=== PATIENT | male | born 1985 | race Caucasian/White ===

== ENCOUNTER 2024-10-08 17:35 | Emergency (ER) | payer OTHER, SELFPAY ==
--- OUTSIDE RECORDS SUMMARY | 2024-10-08 17:37 | XMS_ITS | Data Portability ---
Author Organization [facility] Address [address] [place] [address] [place] [address] Assessment No assessment recorded. Plan of Treatment Reminders Order Date Submit Date Provider Last Modified By Organization Details Last Modified Time Details Appointments None record ed. Lab None record ed. Referral None record ed. Procedures None record ed. Surgeries None record ed. Imaging None record ed. Medication Orders None record ed. Patient TargetsNo targets recorded. Patient Instructions Encounter Date Encounter Id Patient Instructions Last Modified By Organization Details Last Modified Time 08/28/2021 [id number] May take Ibuprofen or Tylenolprn. Use ice to arm prn. [email or web address] Not available 08/28/2021 18:35:17 Reason for Referral None Reported. Medical Equipment None Reported. Vitals None Recorded Social History None recorded. Functional Status None recorded. Mental Status None recorded. Family History Nothing Reported. Medical History No medical history recorded. Immunizations Vaccine Type Date Status Note Provider Nam e and Address Organization Details Recorded Time COVID-19, mRNA, LNP-S, PF, 30 mcg/0.3 mL dose 08/28/2021 completed DOMINICK SANTILLAN [address] [place] [address], [phone], [facility] 08/28/2021 18:35:17 Past Encounters Encounter ID Performer Location Encounter Start Date Encounter Closed Date Diagnosis/Indication Diagnosis SNOMED-CT Code Diagnosis ICD10 Code [id number] DOMINICK SANTILLANKATHRYN [facility] [address] [facility] [place] [id number] 08/28/2021 18:18:41 11/12/2021 03:52:43 Administration of SARS-CoV-2 mRNA vaccine [id number] Z23 Health Concerns Section Related Observation LastModified by Organization Detai ls LastModified Time None Recorded Concern Status LastModified by Organization Details LastModified Time None Recorded Advance Directives Directive None Recorded Payers Encounter Date Sequence Insurance Name Policy Number Policy Johnson Covered Member ID Johnson Member ID Guarantor Name 08/28/2021 1 *SELF PAY* Notes Date Note Type Note Provider Name and Address Organization Details Recorded Time 08/28/2021 text/html Requesting Covid 19 vaccine, booster for J&J DOMINICK SANTILLAN [address] [place], [address], [facility] 08/28/2021 18:35:22
[2024-10-08 17:51] VITALS: BP 102/65; PULSE 80; RESP 18; TEMP 36.4; O2SAT 98; BMI 34.9
--- NOTE | 2024-10-08 18:20 | ED_ITS ---
HPI - Back Pain/Injury General Time Seen by Provider: 18:20 Date Seen: 10/08/24 Chief Complaint: Back Injury/Pain Stated Complaint: back pain Time Seen by Provider: 10/08/24 18:20 Source: patient Mode of arrival: ambulatory Limitations: no limitations History of Present Illness HPI Narrative: Bob is a very pleasant 39-year-old male previously healthy currently working at [employer] in [employer] who comes to the emergency room with back pain. Patient notes he was walking downstairs yesterday and felt a sudden pain in his low back. It was not significant at that time. It is now evolved with increasing pain in that area with radiation down both of his anterior legs. He notes radiation into the groin as well. He has not had any loss of bowel or bladder control. Pain does not radiate past the knees. His significant other states it was hard for him to get up from the bed in order to use the restroom because of the discomfort. He has not injured his back in the past. Related Data Home Medications ?Medication ?Instructions ?Recorded ?Confirmed glipizide 2.5 mg tablet, extended 2.5 mg PO DAILY 10/08/24 10/08/24 release 24 hr metformin 500 mg tablet,extended mg PO 10/08/24 release 24 hr Allergies Allergy/AdvReac Type Severity Reaction Status Date / Time No Known Drug Allergies Allergy Verified 10/08/24 17:57 Review of Systems Status of ROS: Reports: 6 or more systems reviewed and unremarkable except as noted in History and below Const: Denies: fever or chills ENMT: Denies: throat pain or nasal congestion Cardio: Denies: chest pain, palpitations, swelling of feet/ankles, lightheadedness or shortness of breath with exertion Resp: Denies: shortness of breath or cough GI: Denies: abdominal pain, nausea or vomiting : Denies: painful urination or genital pain Musculo: Reports: back pain and extremity pain; Denies: extremity swelling Exam Narrative: Exam Narrative: Patient is alert and oriented. Nontoxic in appearance. External ears eyes nose clear. Heart with regular rate and rhythm and lungs are clear. Palpation over the lower back shows tenderness at the superior SI joint. Somewhat in the midline. Patient has full sensation station and motor distally. He she he has full Norman and plantar flexion at the ankles and great toes. DTRs at the knees 1+. No evidence of hyperreflexia. Const: Vital Signs, click to edit/add: Vital Signs - 24 hr 10/08/24 17:51 Temperature 97.5 F L Pulse Rate [Pulse Oximeter] 80 Respiratory Rate 18 Blood Pressure [Ri ght Upper Arm] 102/65 Pulse Oximetry 98 Oxygen Delivery Me thod Room Air Documenting provider has reviewed patient's vital signs: yes Course Course ED Course: Differential diagnosis includes was not limited to disc protrusion with radiculitis, radiculopathy, cauda Luo a, musculoskeletal pain. At this time patient has full motor of the lower extremities and no changes of DTRs. Will obtain x-ray as I am surprised that he has pain down the anterior thighs and not the posterior thighs. Will give dose of morphine 8 mg and Toradol 30 mg I am while awaiting x-ray results. Vital Signs Vital signs: Initial Vital Signs Temperature 97.5 F L 10/08/24 17:51 Temperature Source Temporal Artery Scan 10/08/24 17:51 Pulse Rate 80 10/08/24 17:51 Respiratory Rate 18 10/08/24 17:51 Blood Pressure 102/65 10/08/24 17:51 Blood Pressure Mean 77 10/08/24 17:51 Blood Pressure Position Sitting 10/08/24 17:51 Pulse Oximetry 98 10/08/24 17:51 Oxygen Delivery Method Room Air 10/08/24 17:51 Vital Signs Temperature 97.5 F L 10/08/24 17:51 Pulse Rate 80 10/08/24 17:51 Respiratory Rate 18 10/08/24 17:51 Blood Pressure 102/65 10/08/24 17:51 Pulse Oximetry 98 10/08/24 17:51 Oxygen Delivery Method Room Air 10/08/24 17:51 Temperature 97.5 F L 10/08/24 17:51 Pulse Rate 80 10/08/24 17:51 Respiratory Rate 18 10/08/24 17:51 Blood Pressure 102/65 10/08/24 17:51 Pulse Oximetry 98 10/08/24 17:51 Oxygen Delivery Method Room Air 10/08/24 17:51 Medications Administered Medications: Discontinued Medications Generic Name Dose Route Start Last Admin Trade Name Freq PRN Reason Stop Dose Admin Ketorolac Tromethamine 30 mg 10/08/24 18:46 10/08/24 19:11 Ketorolac 30 Mg/Ml Inj IM 10/08/24 18:47 30 mg ONCE ONE Administration Morphine Sulfate 8 mg 10/08/24 18:46 10/08/24 19:11 Morphine 4 Mg/Ml Inj IM 10/08/24 18:47 8 mg ONCE ONE Administration MDM - Back Pain/Injury MDM Narrative Medical decision making narrative: 1. Low back pain-patient does have radiation of discomfort down his thighs but not past his knees. He has no loss of bowel or bladder control, change in reflexes or weakness of the lower extremities. No evidence of cauda CHI in and X-rays show well preserved disc spaces. Patient received Toradol 30 mg IM and morphine 8 mg IM with significant relief. He is now able to get up off the bed. He is able to show me can stand on his tiptoes as well as on his heels. Will be discharging him home. Would like him to switch from Ali visit does not seem it helped very much today to ibuprofen 800 mg every 8 hours as needed for discomfort. Will also give him a prescription for Flexeril through our [employer] machine 10 mg p.o. t.i.d. p.r.n. although advise him to avoid this medication if driving or going to work. I did offer to write a work note that he has states they do not have to work till tomorrow night at 1700 hours. Would ask that he use ice to areas of discomfort. Return to the emergency room for loss of bowel or bladder control increasing pain and as needed. 2. Disposition- home at this time. Both patient and his feel safe to go home. Imaging Data Lumbar spine: Attestation: I have reviewed the pertinent imaging results. My impression: By my read no compression fractures. Disc spaces are fairly well maintained. Radiologist's impression: Five lumbar-type vertebral bodies are normal height and alignment. Slight intervertebral disc height loss at L4-5. The remaining intervertebral disc spaces are maintained. There are tiny marginal osteophytes at nearly all levels. No aggressive osseous lesion. The posterior elements are unremarkable. The soft tissues are normal. Impression: No acute bony abnormality of the lumbar spine. Discharge Plan Discharge Clinical Impression: Low back pain Qualifiers: Chronicity: acute Back pain laterality: left Sciatica presence: without sciatica Qualified Code(s): M54.50 - Low back pain, unspecified Patient Disposition: Home, Self-Care Condition: Improved Instructions: Acute Low Back Pain (ED) Additional Instructions: You may take either of the following: A leave 2 tablets every 12 hours for ibuprofen 800 mg every 8 hours. Flexeril is a muscle relaxant that may be used as needed. Please avoid using this medication if driving or working because it will make you tired. Ice to area of discomfort. If you are not improving please follow-up at 1 of our local clinics for recheck. If you have markedly worsening pain, loss of bowel or bladder control, increasing pain of the legs please return to the emergency room for further evaluation. Prescriptions: No Action glipizide 2.5 mg tablet extended release 24hr 2.5 mg PO DAILY metformin 500 mg tablet extended release 24 hr PO Follow Up/Referrals: Provider,Not a Local [Primary Care Provider] - Stand Alone Forms: [employer] Info Instructions
--- NOTE | 2024-10-08 18:47 | CRLHL7_ITS ---
For Patients: As a result of the Century Cures Act, medical imaging exams and procedure reports are released immediately into your electronic medical record. You may view this report before your referring provider. If you have questions, please contact your health care provider. Indication: Left-sided low back pain. Technique: Lumbar spine 3 views. Comparison: None. Findings: Five lumbar-type vertebral bodies are normal height and alignment. Slight intervertebral disc height loss at L4-5. The remaining intervertebral disc spaces are maintained. There are tiny marginal osteophytes at nearly all levels. No aggressive osseous lesion. The posterior elements are unremarkable. The soft tissues are normal. Impression: No acute bony abnormality of the lumbar spine. Dictated by Vishnu Johnson MD @ 10/08/2024 8:00:50 PM (Electronically Signed)
[2024-10-08] MEDS: KETOROLAC 30 MG/ML inj IM (19:11)
[2024-10-08] MEDS: MORPHINE 4 MG/ML INJ 8 MG IM (19:11)
== END 2024-10-08 20:30 | disposition home or self-care (01) ==
PROVIDERS: Emergency Provider Family Medicine
DX: M54.50 Low back pain, unspecified (principal)
CPT/HCPCS: 72100; 96372; 99284; J1885; J2270

== ENCOUNTER 2025-02-07 21:34 | Emergency (ER) | payer OTHER, SELFPAY ==
--- OUTSIDE RECORDS SUMMARY | 2025-02-07 21:36 | XMS_ITS | Data Portability ---
Author Organization [facility] Address [address] [place] [address] [place] [address] Assessment No assessment recorded. Plan of Treatment [...] By Organization Details Last Modified Time 08/28/2021 [id number] May take Ibuprofen or Tylenolprn. Use ice to arm prn. [email or web address] Not available 08/28/2021 18:35:17 Reason for Referral None Reported. Medical Equipment None Reported. Vitals None Recorded Social History None recorded. Functional Status None recorded. Mental Status None recorded. Family History Nothing Reported. Medical History No medical history recorded. Immunizations Vaccine Type Date Status Note Provider Talib talley and Address Organization Details Recorded Time COVID-19, mRNA, LNP-S, PF, 30 mcg/0.3 mL dose 08/28/2021 completed DOMINICK SANTILLAN [address] [place] [address], [phone], [facility] 08/28/2021 18:35:17 Past Encounters Encounter ID Performer Location Encounter Start Date Encounter Closed Date Diagnosis/Indication Diagnosis SNOMED-CT Code Diagnosis ICD10 Code [facility] [address] [facility] [place] [id number] 08/28/2021 18:18:41 11/12/2021 03:52:43 Administration of SARS-CoV-2 mRNA vaccine [id number] Z23 Health Concerns Section Related Observation LastModified [...] vaccine, booster for J&J DOMINICK SANTILLAN [address] [facility] [place], [address], [facility] - [facility] 08/28/2021 18:35:22
[2025-02-07 21:41] VITALS: BP 133/90; PULSE 98; RESP 20; TEMP 36.3; O2SAT 96
--- NOTE | 2025-02-07 21:54 | ED_ITS ---
HPI - Wound/Laceration General Chief Complaint: Laceration/Wound Stated Complaint: cut L pinky finger @ work Time Seen by Provider: 02/07/25 21:42 History of Present Illness HPI narrative: This 39-year-old male comes in with an injury to his left little finger. He was at work and tripped over something and injured his little finger on a sharp part of a machine. He has a 1 cm laceration over the distal portion of the dorsal aspect of the left little finger. He states that his tetanus status is not up-to-date. Related Data Home Medications ?Medication ?Instructions ?Recorded ?Confirmed glipizide 2.5 mg tablet, extended 2.5 mg PO DAILY 10/08/24 02/07/25 release 24 hr metformin 500 mg tablet,extended 1,000 mg PO BID 10/08/24 02/07/25 release 24 hr Allergies Allergy/AdvReac Type Severity Reaction Status Date / Time No Known Drug Allergies Allergy Verified 02/07/25 21:45 Review of Systems Status of ROS: Reports: 10 or more systems reviewed and unremarkable except as noted in History and below Narrative: Constitutional: No fevers, no weight gain or loss. Eyes: No discharge. No vision changes. HENT: No congestion, no sore throat, no ear pain. Cardiovascular: No chest pain, no palpitations. Respiratory: No shortness of breath, no wheezes, no cough. Gastrointestinal: No abdominal pain, no vomiting, no diarrhea. Genitourinary: No dysuria, no hematuria. Musculoskeletal: Normal range of motion. Skin: No rashes, no pruritis. Neurological: No dizziness, weakness, sensory change, speech change. Endo/Heme/Allergies: No bruising or bleeding. No polydipsia. Pysch: no suicidality, no anxiety, no insomnia. All other systems reviewed and are negative. Exam Narrative: Exam Narrative: Constitutional: Well-developed, well-nourished, no acute distress. HEENT: Normocephalic, atraumatic. Neck: Normal range of motion. Nontender. Supple. Heart: Intact distal pulses. Lungs: No chest discomfort. No wheezes, rhonchi, or rales. Abdomen: Nontender. Back: Normal range of motion. Extremities: Normal range of motion. Left little finger has a 1 cm linear laceration on the dorsal aspect of the distal joint. Range of motion is intact. Skin: Intact. No rash. Warm. No erythema or pallor. Neurologic: No altered sensation. No weakness. Alert and oriented. Psychiatric: No suicidality. No anxiety or depression. No insomnia. Nursing notes and vitals signs are reviewed. Const: Vital Signs, click to edit/add: Vital Signs - 24 hr 02/07/25 21:41 Temperature 97.4 F L Pulse Rate [Pulse Oximeter] 98 Respiratory Rate 20 Blood Pressure [Le ft Upper Arm] 133/90 H Pulse Oximetry 96 Oxygen Delivery Me thod Room Air Course Vital Signs Vital signs: Initial Vital Signs Temperature 97.4 F L 02/07/25 21:41 Temperature Source Temporal Artery Scan 02/07/25 21:41 Pulse Rate 98 02/07/25 21:41 Respiratory Rate 20 02/07/25 21:41 Blood Pressure 133/90 H 02/07/25 21:41 Blood Pressure Mean 104 02/07/25 21:41 Pulse Oximetry 96 02/07/25 21:41 Oxygen Delivery Method Room Air 02/07/25 21:41 Vital Signs Temperature 97.4 F L 02/07/25 21:41 Pulse Rate 98 02/07/25 21:41 Respiratory Rate 20 02/07/25 21:41 Blood Pressure 133/90 H 02/07/25 21:41 Pulse Oximetry 96 02/07/25 21:41 Oxygen Delivery Method Room Air 02/07/25 21:41 Temperature 97.4 F L 02/07/25 21:41 Pulse Rate 98 02/07/25 21:41 Respiratory Rate 20 02/07/25 21:41 Blood Pressure 133/90 H 02/07/25 21:41 Pulse Oximetry 96 02/07/25 21:41 Oxygen Delivery Method Room Air 02/07/25 21:41 MDM - Wound/Laceration MDM Narrative Medical decision making narrative: This patient has a laceration that would benefit from repair. After the wound was cleansed I applied Dermabond to seal the wound followed by a Band-Aid. The patient did receive a tetanus vaccination here. Discharge Plan Discharge Clinical Impression: Laceration Patient Disposition: Home, Self-Care Condition: Improved Additional Instructions: Keep wound clean and dry. Activity as tolerated. Use [id number] meds also as needed and directed. Follow up with MD return if worsening. Prescriptions: No Action glipizide 2.5 mg tablet extended release 24hr 2.5 mg PO DAILY metformin 500 mg tablet extended release 24 hr 1,000 mg PO BID Follow Up/Referrals: Provider,Not a Local [Primary Care Provider] - Stand Alone Forms: [employer] Info Instructions
[2025-02-07] MEDS: TETANUS/DIPHTH/PERTUSSIS 0.5 ML SYRINGE IM (22:01)
--- OUTSIDE RECORDS SUMMARY | 2025-02-07 22:04 | XMS_ITS | Clinical Summary ---
Author Organization [email or web address] Address [address] [place] [id number] Care Team Providers Care Chuck Wagon Driver Name Role Phone Pcp, No Primary Care Provider Unavailabl e Allergies No known active allergies Medications cyclobenzaprine (FLEXERIL) 10 mg tabletIndicatio ns:Acute right-sided low back pain without sciatica Take 1 Tablet (10 mg) by mouth 3 times daily if needed for Muscle Spasm. 30 Tablet 03/20/2022 Active naproxen (ALEVE) 220 mg tabletIndicatio ns:Acute right-sided low back pain without sciatica Take 2 Tablets (440 mg) by mouth every 8 hours if needed for Pain. 0 03/20/2022 Active blood sugar diagnostic (Contour Next Test Strips) stripIndication s:Type 2 diabetes mellitus without complication, without long-term current use of insulin (HC) Dispense test strips covered by the patient insurance. Test 3 times per day. 100 Each 12 04/13/2022 Active lancets (Microlet Lancet)Indicati ons:Type 2 diabetes mellitus without complication, without long-term current use of insulin (HC) For testing blood sugars at home 100 Each 12 04/13/2022 Active Blood-Glucose Meter (Contour Next One Meter)Indicatio ns:Type 2 diabetes mellitus without complication, without long-term current use of insulin (HC) Dispense glucose meter, test strips and lancets covered by the patient insurance. Test 3 times per day. 1 Kit 04/13/2022 Active metFORMIN (GLUCOPHAGE XR) 500 mg Extended-Releas e tabletIndicatio ns:Type 2 diabetes mellitus without complication, without long-term current use of insulin (HC) TAKE 2 TABLETS (1,000 MG) BY MOUTH TWICE A DAY WITH MEALS 360 Tablet 3 11/14/2024 Active glipiZIDE extended-releas e (GLUCOTROL XL) 2.5 mg Extended-Releas e tabletIndicatio ns:Type 2 diabetes mellitus without complication, without long-term current use of insulin (HC) TAKE 1 TABLET (2.5 MG) BY MOUTH ONCE DAILY BEFORE A MEAL. 90 Tablet 11/13/2024 Active Active Problems Problem Noted Date Diagnosed Date Type 2 diabetes mellitus wit hout complication, without long-term current use of insulin 09/09/2023 Encounters Date Type Department Care Team Description 11/11/2024 Refill [facility] [address] [place] [address] Melly Zuniga, Refill Request (Metformin, Glipizide Extended-release) from Last 3 Months Immunizations Immunization Administration Dates Next Due Influenza, IIV4 07/23/2017 Social History Tobacco Use Types Packs/Day Years Used Date Smoking Tobacco: Former Smokeless Tobacco: Never Tobacco Cessation:Counseling Given: Yes Alcohol Use Standard Drinks/Week Comments Yes 0 (1 standard drink = 0.6 oz pur e alcohol) social PHQ-2 Answer Date Recorded PHQ-2 TOTAL SCORE 0 09/09/2023 Social Connections Answer Date Recorded Do you often feel lonely or isolated from those around you? 0 09/09/2023 Financial Resource Strain Answer Date R ecorded Difficulty of Paying Living Expenses 3 09/09/2023 Difficulty of Paying Living Expenses Not on file 09/09/2023 Food Insecurity Answer Date Recorded Do you worry your food will run out before you are able to buy more? 1 09/09/2023 Transportation Needs Answer Date Record ed Does lack of transportation keep you from medica l appointments? 1 09/09/2023 Does lack of transportation keep you from work, meetings or getting things that you need? 1 09/09/2023 Housing Stability Answer Date Recorded What is your housing situation today? 1 09/09/2023 Sex and Gender Information Value Date Recorded Sex Assigned at Not on file Legal Sex Male 8:48 AM CDT Gender Identity Not on file Sexual Orientation Not on file Obstetrics History Last Filed Vital Signs Vital Sign Reading Time Taken Comments Blood Pressure 126/80 09/09/2023 7:52 AM SKIVER MACHINE OPERATOR Pulse 100 09/09/2023 7:52 AM SKIVER MACHINE OPERATOR Temperature - - Respiratory Rate - - Oxygen Saturation 98% 09/09/2023 7:52 AM SKIVER MACHINE OPERATOR Inhaled Oxygen Concentration - - Weight 117.5 kg (259 lb) 09/09/2023 7:52 AM SKIVER MACHINE OPERATOR Height 180.3 cm (5' 11) 09/09/2023 7:52 AM SKIVER MACHINE OPERATOR Body Mass Index 36.12 09/09/2023 7:52 AM SKIVER MACHINE OPERATOR Plan of Treatment Health Maintenance Due Date Last Done Comments Tdap 1997 HIV for age 15-65 2001 Hepatitis C screening for age 18-79 2004 Pneumococcal series for age 6-49 (1 of 2 - PCV) 2005 Tetanus booster 2006 COVID-19 vaccine series ( season) 2024 08/28/2021, 02/02/2021 BMI (ht and wt on same day) for age 18+ 09/09/2024 1 11/09/2022, 03/20/2022 Depression screening for age 12+ 09/09/2024 09/09/20 23 Influenza Vaccine (Season Ended) 2025 07/23/20 17 Lipids for age 35-44 09/09/2028 09/09/2023 Procedures Procedure Name Priority Date/Time Associated Diagnosis Comments LIPID PANEL W REFLEX MEASURED LDL Routine 09/09/2023 8:13 AM SKIVER MACHINE OPERATOR Type 2 diabetes mellitus without complication, without long-term current use of insulin (HC) from Last 3 Months or Most Recently Relevant to Health Maintenance Results * (ABNORMAL) LIPID PANEL W REFLEX MEASURED LDL (09/09/2023 8:13 AM SKIVER MACHINE OPERATOR) CHOLESTEROL,TOTAL 185 100 - 199 mg/dL 09/09/2023 2:22 PM SKIVER MACHINE OPERATOR [facility] Comment: Cholesterol, Total Reference Ranges Desirable <200 mg/dL Borderline 200-239 mg/dL High >=240 mg/dL TRIGLYCERIDES 270(H) <150 mg/dL 09/09/2023 2:22 PM SKIVER MACHINE OPERATOR [facility] [facility] HDL CHOLESTEROL 31(L) >40 mg/dL 2:22 PM SKIVER MACHINE OPERATOR [facility] NON-HDL CHOLESTEROL 154(H) <145 mg/dl 09/09/2023 2:22 PM SKIVER MACHINE OPERATOR [facility] CHOL/HDL RATIO 5.97(H) <4.50 09/09/2023 2:22 PM SKIVER MACHINE OPERATOR [facility] LDL CHOLESTEROL 100 <=130 mg/dL 09/09/2023 2:22 PM SKIVER MACHINE OPERATOR [facility] VLDL CHOLESTEROL 54(H) <=30 mg/dL 09/09/2023 2:22 PM SKIVER MACHINE OPERATOR [facility] PROVIDER ORDERED STATUS RANDOM 09/09/2023 2:22 PM SKIVER MACHINE OPERATOR [facility] Blood BLOOD SPECIMEN / Unknown Venipuncture / Unknown 09/09/2023 8:13 AM SKIVER MACHINE OPERATOR 09/09/2023 8:14 AM SKIVER MACHINE OPERATOR us Melly Zuniga DO CHEMISTRY Final Result [facility] [address] [place] [id number], from Last 3 Months or Most Recently Relevant to Health Maintenance Care Teams Chuck Wagon Driver Relationship Specialty Start Date End Date Pcp, No . PCP - General 03/20/22
== END 2025-02-07 22:23 | disposition home or self-care (01) ==
LOC: ED 22:02
PROVIDERS: Emergency Provider Emergency Medicine Emergency Medical Services
DX: S61.217A Laceration without foreign body of left little finger without damage to nail, initial encounter (principal); W01.198A Fall on same level from slipping, tripping and stumbling with subsequent striking against other object, initial encounter; Z23 Encounter for immunization
CPT/HCPCS: 12001; 90471; 90715; 99283; 99284